=== PATIENT | female | born 1990 | race Caucasian/White ===

== ENCOUNTER 2022-01-16 01:48 | Inpatient (IN) ==
[2022-01-16] MEDS ORDERED: Ringers Solution, Lactated 1,000 ML IVC SCH (10:30)
[2022-01-16] MEDS: *HR* Buprenorphine HCl 8 MG TAB.SUBL SL SCH (12:36)
[2022-01-16] MEDS: Ondansetron ODT 4 MG TAB.RAPDIS SL PRN (12:37)
[2022-01-16] MEDS: Acetaminophen 325 MG TABLET PO PRN ×2 (12:37→21:20)
[2022-01-16 14:09] LABS: eGFR For African Americans > 60 (> 60); eGFR For Non-African Americans > 60 (> 60)
[2022-01-16] MEDS: Gentamicin 120 MG in 0.9 % Sodium Chloride 100 ML IVPB SCH ×2 (17:07→23:51)
[2022-01-16 19:01] VITALS: O2SAT 99
[2022-01-16] MEDS ORDERED: cefTRIAXone 1,000 MG in 0.9 % Sodium Chloride Mini Bag 100 ML IVPB SCH (23:00)
[2022-01-17 06:52] VITALS: BP 101/64; PULSE 91; TEMP 97.9
[2022-01-17 07:22] LABS: Basophils % 0.4 %; Eosinophils # 0.3 K/mcL (0.0-0.6); Eosinophils % 3.4 %; Hematocrit 29.4 % (35.3-44.9); Hemoglobin 9.2 g/dL (11.5-15.4); Immature Granulocytes % 0.4 % (0-4); Lymphocytes # 2.3 K/mcL (0.6-4.6); Lymphocytes % 28.3 %; Mean Corpuscular HGB Conc 31.3 g/dL (31.6-35.5); Mean Corpuscular Hemoglobin 28.6 pg (28.0-33.3); Mean Corpuscular Volume 91.3 fL (83.0-100.0); Mean Platelet Volume 11.5 fL (9.4-12.4); Monocytes # 0.5 K/mcL (0.0-1.3); Monocytes % 6.7 %; Neutrophils # 4.9 K/mcL (1.6-8.9); Platelet Count 221 K/mcL (140-400); Red Blood Count 3.22 M/mcL (3.82-4.97); Red Cell Distribution Width 13.2 % (11.5-14.5); Segmented Neutrophils % 60.8 %
[2022-01-17 07:42] LABS: BUN/Creatinine Ratio 6 (6-26); Blood Urea Nitrogen 3 mg/dL (6-20); Carbon Dioxide 25 mEq/L (23-29); Chloride 108 mEq/L (98-107); Glucose 78 mg/dL (70-105); Osmolality,Calculated 281 (280-300); Potassium 3.8 mEq/L (3.5-5.1); Sodium 138 mEq/L (136-145); eGFR For African Americans > 60 (> 60); eGFR For Non-African Americans > 60 (> 60)
[2022-01-17] MEDS: Gentamicin 120 MG in 0.9 % Sodium Chloride 100 ML IVPB SCH (08:02)
[2022-01-17] MEDS: Ondansetron ODT 4 MG TAB.RAPDIS SL PRN (08:10)
[2022-01-17] MEDS: Acetaminophen 325 MG TABLET PO PRN (08:11)
[2022-01-17] MEDS: *HR* Buprenorphine HCl 8 MG TAB.SUBL SL SCH (08:11)
== END 2022-01-17 11:30 | disposition home or self-care (01) | DRG 566 ==
LOC: 1NENUOBS
PROVIDERS: ADMIT Obstetrics & Gynecology; ATTEND Obstetrics & Gynecology

== ENCOUNTER 2022-03-21 04:48 | Inpatient (IN) ==
[2022-03-21] MEDS ORDERED: CeFAZolin 2,000 MG/120 ML BAG IVPB ONE (04:50)
[2022-03-21] MEDS ORDERED: Famotidine 20 MG/2 ML VIAL IVP ONE (04:50)
[2022-03-21] MEDS ORDERED: Metoclopramide 10 MG/2 ML VIAL IVP ONE (04:50)
[2022-03-21] MEDS ORDERED: Ringers Solution, Lactated 1,000 ML IVC ONE (04:50)
[2022-03-21] MEDS ORDERED: Ringers Solution, Lactated 1,000 ML IVC SCH (05:00)
[2022-03-21] MEDS ORDERED: Oxytocin 30 UNIT/503 ML BAG IVC SCH ×2 (05:00→15:15)
[2022-03-21 05:41] LABS: Basophils % 0.3 %; Eosinophils # 0.2 K/mcL (0.0-0.6); Eosinophils % 2.7 %; Hemoglobin 9.9 g/dL (11.5-15.4); Immature Granulocytes % 0.9 % (0-4); Lymphocytes # 2.2 K/mcL (0.6-4.6); Lymphocytes % 29.5 %; Mean Corpuscular HGB Conc 30.9 g/dL (31.6-35.5); Mean Corpuscular Hemoglobin 26.5 pg (28.0-33.3); Mean Corpuscular Volume 85.6 fL (83.0-100.0); Mean Platelet Volume 11.1 fL (9.4-12.4); Monocytes # 0.5 K/mcL (0.0-1.3); Monocytes % 7.1 %; Neutrophils # 4.4 K/mcL (1.6-8.9); Platelet Count 272 K/mcL (140-400); Red Blood Count 3.74 M/mcL (3.82-4.97); Red Cell Distribution Width 13.1 % (11.5-14.5); Segmented Neutrophils % 59.5 %; White Blood Count 7.5 K/mcL (4.3-11.1)
[2022-03-21 06:13] LABS: Amphetamine Screen,Urine Negative ng/mL (Cutoff=1000); Barbiturate Screen,Urine Negative ng/mL (Cutoff=200); Benzodiazepines Screen,Urine Negative ng/mL (Cutoff=200); Cannabinoid Screen,Urine Negative ng/mL (Cutoff = 50); Cocaine Screen,Urine Negative ng/mL (Cutoff= 300); Opiate Screen,Urine Negative ng/mL (Cutoff=300); Phencyclidine Screen,Urine Negative ng/mL (Cutoff=25)
[2022-03-21] MEDS ORDERED: *HR* Buprenorphine HCl 8 MG TAB.SUBL SL SCH (09:30)
[2022-03-21] MEDS ORDERED: *HR* FentaNYL (PF) 100 MCG/2 ML VIAL ONE (10:09)
[2022-03-21] MEDS ORDERED: *HR* Midazolam HCl 2 MG/2 ML VIAL ONE (10:09)
[2022-03-21] MEDS ORDERED: *HR* Morphine Sulfate/PF 10 MG/10 ML AMPUL ONE (10:09)
[2022-03-21] MEDS ORDERED: Ondansetron 4 MG/2 ML VIAL ONE (10:10)
[2022-03-21] MEDS ORDERED: EPHEDrine 50 MG/ML VIAL ONE (10:15)
[2022-03-21] MEDS ORDERED: Ringers Solution, Lactated 1,000 ML ONE (10:15)
[2022-03-21] MEDS ORDERED: Ketorolac 30 MG/ML VIAL ONE (10:53)
[2022-03-21] MEDS ORDERED: *HR* Oxytocin 10 UNIT/ML VIAL ONE (10:53)
[2022-03-21] MEDS ORDERED: *HR* HYDROMORPHONE 2 MG/ML VIAL ONE ×2 (12:34→13:20)
[2022-03-21] MEDS ORDERED: Acetaminophen IV 1,000 MG/100 ML BAG IVPB ONE (13:43)
[2022-03-21] MEDS ORDERED: Rho Immune Globulin 1,500 UNIT SYRINGE IM ONE (14:20)
[2022-03-21] MEDS ORDERED: METOCLOPRAMIDE 10 MG PO PRN (14:20)
[2022-03-21] MEDS ORDERED: Simethicone 80 MG TAB.CHEW PO PRN (14:20)
[2022-03-21] MEDS ORDERED: Metoclopramide 10 MG/2 ML VIAL IVP PRN (14:20)
[2022-03-21] MEDS ORDERED: Ondansetron 4 MG/2 ML VIAL IVP PRN (14:20)
[2022-03-21] MEDS ORDERED: Gabapentin 300 MG CAPSULE PO SCH (15:00)
[2022-03-21] MEDS: Acetaminophen 325 MG TABLET PO SCH ×2 (15:16→20:49)
[2022-03-21] MEDS: Gabapentin 300 MG CAPSULE PO SCH ×2 (15:18→20:50)
[2022-03-21] MEDS ORDERED: Ibuprofen 600 MG TABLET PO SCH (15:21)
[2022-03-21] MEDS ORDERED: *HR* Buprenorphine HCl 8 MG TAB.SUBL SL PRN (18:10)
[2022-03-21] MEDS ORDERED: Lanolin 7 G OINT...G. TP PRN (20:42)
[2022-03-21] MEDS: cephALEXin 500 MG CAPSULE PO SCH (20:50)
[2022-03-22] MEDS: Acetaminophen 325 MG TABLET PO SCH ×4 (02:36→21:01)
[2022-03-22 05:58] LABS: Basophils # 0.1 K/mcL (0.0-0.2); Basophils % 0.4 %; Eosinophils # 0.1 K/mcL (0.0-0.6); Eosinophils % 1.1 %; Hematocrit 29.4 % (35.3-44.9); Hemoglobin 9.2 g/dL (11.5-15.4); Immature Granulocytes % 0.7 % (0-4); Lymphocytes # 3.1 K/mcL (0.6-4.6); Lymphocytes % 25.3 %; Mean Corpuscular HGB Conc 31.3 g/dL (31.6-35.5); Mean Corpuscular Hemoglobin 26.5 pg (28.0-33.3); Mean Corpuscular Volume 84.7 fL (83.0-100.0); Mean Platelet Volume 10.7 fL (9.4-12.4); Monocytes # 0.9 K/mcL (0.0-1.3); Monocytes % 7.5 %; Neutrophils # 7.9 K/mcL (1.6-8.9); Platelet Count 254 K/mcL (140-400); Red Blood Count 3.47 M/mcL (3.82-4.97); Red Cell Distribution Width 13.1 % (11.5-14.5)
[2022-03-22 05:59] LABS: White Blood Count 12.1 K/mcL (4.3-11.1)
[2022-03-22] MEDS: Ketorolac 30 MG/ML VIAL IVP PRN ×3 (07:05→21:02)
[2022-03-22] MEDS: Prenatal Vit/FA 1 EACH TABLET PO SCH (07:56)
[2022-03-22] MEDS: *HR* Buprenorphine HCl 8 MG TAB.SUBL SL SCH (07:56)
[2022-03-22] MEDS: cephALEXin 500 MG CAPSULE PO SCH ×3 (07:56→21:01)
[2022-03-22] MEDS: Gabapentin 300 MG CAPSULE PO SCH ×3 (07:56→21:02)
[2022-03-23] MEDS: Acetaminophen 325 MG TABLET PO SCH ×4 (03:01→20:33)
[2022-03-23] MEDS: Ketorolac 30 MG/ML VIAL IVP PRN ×3 (03:02→14:36)
[2022-03-23] MEDS: Prenatal Vit/FA 1 EACH TABLET PO SCH (09:49)
[2022-03-23] MEDS: *HR* Buprenorphine HCl 8 MG TAB.SUBL SL SCH (09:51)
[2022-03-23] MEDS: cephALEXin 500 MG CAPSULE PO SCH ×2 (09:53→20:32)
[2022-03-23] MEDS: Gabapentin 300 MG CAPSULE PO SCH ×3 (10:03→20:33)
[2022-03-23 20:47] VITALS: O2SAT 97
[2022-03-23] MEDS: Ibuprofen 600 MG TABLET PO SCH (21:07)
[2022-03-24] MEDS: Acetaminophen 325 MG TABLET PO SCH ×2 (03:08→08:48)
[2022-03-24] MEDS: Ibuprofen 600 MG TABLET PO SCH (03:09)
[2022-03-24 07:50] VITALS: BP 106/69; PULSE 90; TEMP 97.9
[2022-03-24] MEDS: Gabapentin 300 MG CAPSULE PO SCH (08:47)
[2022-03-24] MEDS: *HR* Buprenorphine HCl 8 MG TAB.SUBL SL SCH (08:47)
[2022-03-24] MEDS: Prenatal Vit/FA 1 EACH TABLET PO SCH (08:48)
== END 2022-03-24 11:36 | disposition home or self-care (01) | DRG 540 ==
LOC: 1NENULAB 04:48 → 1NENUOBS 14:01
PROVIDERS: ADMIT Obstetrics & Gynecology; ATTEND Obstetrics & Gynecology